=== PATIENT | male | born 1985 | race Two or more races ===

== ENCOUNTER 2024-10-10 16:43 | Emergency (ER) | payer OTHER ==
[~2024-10-10] VITALS: Ht 188 cm; Wt 80.0 kg
[2024-10-10 16:47] VITALS: O2SAT 100
[2024-10-10 17:00] VITALS: O2SAT 100
[2024-10-10] MEDS: LEVETIRACETAM 1000MG PREMIX 100 ML IV SCH (17:36)
[2024-10-10] MEDS: ACETAMINOPHEN 325MG TABLET PO ONE (18:05)
[2024-10-10 18:36] LABS: HEMATOCRIT. 41.8 % (42.0-52.0); MEAN CORPUSCULAR HEMOGLOBIN 33.9 pg (28.0-32.0); MEAN CORPUSCULAR HGB CONC 33.5 g/dL (31.0-37.0); MEAN CORPUSCULAR VOLUME 101.4 fL (80.0-94.0); MEAN PLATELET VOLUME 7.8 fl (7.4-10.4); PLATELET 254 x1000/uL (130-400); RED BLOOD CELL COUNT 4.12 mill/uL (4.7-6.1); RED CELL DISTRIBUTION WIDTH 13.1 % (11.6-14.6); WHITE BLOOD COUNT 22.4 x1000/uL (4.5-11.0)
[2024-10-10 18:41] LABS: DIFFERENTIAL COMMENT 1
[2024-10-10 18:49] LABS: CARBON DIOXIDE 26 mEq/L (21-32); CHLORIDE 110 mEq/L (98-107); POTASSIUM 4.1 mEq/L (3.5-5.1); SODIUM 142 mEq/L (136-145)
[2024-10-10 18:50] LABS: CALCIUM 9.7 mg/dL (8.7-10.4)
[2024-10-10 18:54] LABS: GLUCOSE 76 mg/dL (70-105)
[2024-10-10 18:55] LABS: TROPONIN I HIGH SENSITIVITY 11 ng/L (3.0-53); UREA NITROGEN BLOOD 6 mg/dL (9-23)
[2024-10-10 18:56] LABS: ALANINE AMINOTRANSFERASE 15 IU/L (10-49); ALBUMIN 4.8 g/dL (3.2-4.8); ASPARTATE AMINOTRANSFERASE 24 IU/L (<34); BILIRUBIN DIRECT 0.2 mg/dL (<=3.0)
[2024-10-10 18:57] LABS: BILIRUBIN TOTAL 0.5 mg/dL (0.1-1.0); PHOSPHORUS 2.1 mg/dL (2.5-4.9); PROTEIN TOTAL 7.4 g/dL (6.0-8.3)
[2024-10-10 19:09] LABS: ETHANOL BLOOD < 10 mg/dL (<10)
[2024-10-10 19:12] VITALS: BP 149/87; PULSE 78; RESP 13
[2024-10-10] MEDS: MORPHINE SULFATE 4 MG/ML INJ (FOR IV/IM USE) IV ONE (19:12)
[2024-10-10 19:14] LABS: PLATELET ESTIMATE NORMAL
[2024-10-10] MEDS: POTASSIUM-SODIUM PHOSPHATE POWDER PACKET PO ONE (21:15)
[2024-10-10] MEDS ORDERED: KEPP500 MT (21:32)
== END 2024-10-10 17:13 | disposition home or self-care (01) ==
LOC: ER 16:55
DX: R56.9 Unspecified convulsions (principal); D64.9 Anemia, unspecified
CPT/HCPCS: 80076; 80048; 80320; 83735; 84100; 85025; 84484; 36415; 70450; 93005; 96365; 96375; 99285; J1953; J2270; Z7610; G0480